=== PATIENT | male | born 1990 | race Two or more races ===

== ENCOUNTER 2019-07-20 22:43 | Emergency (ER) | payer MEDICAID ==
[~2019-07-20] VITALS: Ht 185.4 cm; Wt 99.8 kg
[2019-07-20] MEDS ORDERED: ACETAMINOPHEN 325 MG TAB PO ONE (23:00)
[2019-07-20 23:20] LABS: Basophils # (auto) 0 10 ^3/uL (0-0.2); Basophils % (auto) 0.4 % (0.0-2.0); Eosinophils # (auto) 0 10 ^3/uL (0-0.8); Hematocrit 44.5 % (41.0-53.0); Hemoglobin 15.3 g/dL (13.5-17.5); Lymphocytes % (auto) 18.5 % (10.0-50.0); Mean Corpuscular Hemoglobin 29.1 pg (28.0-32.0); Mean Corpuscular Hgb Conc. 34.3 g/dL (32.0-36.0); Mean Corpuscular Volume 84.7 fL (80.0-100.0); Monocytes # (auto) 1.1 10 ^3/uL (0-1.3); Monocytes % (auto) 9.8 % (0.0-12.0); Neutrophils # (auto) 7.7 10 ^3/uL (1.6-8.6); Neutrophils % (auto) 71.3 % (37.0-80.0); Nucleated Red Blood Cells % 0.3 %; Platelet Count (auto) 265 10^3/uL (140-450); Red Blood Cells 5.25 10^6/uL (4.5-5.90); Red Cell Distribution Width 12.4 % (11.8-14.3); White Blood Cell 10.7 10^3/uL (4.4-10.8)
[2019-07-20 23:41] LABS: Albumin 3.8 g/dL (3.4-5.0); BUN/Creatinine Ratio 11.9; Calcium 7.6 mg/dL (8.5-10.1); Magnesium 1.8 mg/dL (1.6-2.6); Potassium 3.6 mmol/L (3.5-5.1)
[2019-07-20 23:49] LABS: Bilirubin, Total 0.7 mg/dL (0.2-1.0); CRP High Sensitivity 6.48 mg/dL (< 0.3); Total Protein 7.6 g/dL (6.4-8.2)
[2019-07-21] MEDS ORDERED: IBUPROFEN 800 MG TAB PO ONE (01:00)
[2019-07-21 02:53] VITALS: BP 102/60
== END 2019-07-21 03:04 | disposition home or self-care (01) ==
LOC: ER 22:49
DX: J01.00 Acute maxillary sinusitis, unspecified (principal); J20.9 Acute bronchitis, unspecified; Z20.828 Contact with and (suspected) exposure to other viral communicable diseases
CPT/HCPCS: 36415; 71045; 80053; 82728; 83605; 83615; 83735; 84443; 85025; 85379; 86141; 87070; 87635; 87804; 87880; 93005; 99285; U0003